=== PATIENT | male | born 1950 | race Hispanic/Latino ===

== ENCOUNTER 2020-03-25 05:15 | Inpatient (IN) | payer MEDICARE, OTHER ==
[2020-03-20 13:25] LABS: BASOPHILS % 0.3 % (0.0-1.0); EOSINOPHILS # (AUTO) 0.4 (0.0-0.4); EOSINOPHILS % 3.7 % (0.0-6.0); HEMATOCRIT 46.6 % (38.2-49.6); HEMOGLOBIN 15.1 g/dL (14.0-18.0); LYMPHOCYTES # (AUTO) 4.1 (1.0-3.2); LYMPHOCYTES % 41.9 % (18.0-39.1); MEAN CORPUSCULAR HEMOGLOBIN 31.9 pg (28-32); MEAN CORPUSCULAR HGB CONC 32.4 g/dL (31-35); MEAN CORPUSCULAR VOLUME 98.3 fL (81-99); MONOCYTES # (AUTO) 0.6 (0.2-0.8); MONOCYTES % 6.2 % (4.4-11.3); NEUTROPHILS # (AUTO) 4.7 (2.1-6.9); NEUTROPHILS % 47.6 % (38.7-80.0); PLATELET COUNT 228 x10e3/uL (140-360); RED BLOOD COUNT 4.74 x10e6/uL (4.3-5.7); RED CELL DISTRIBUTION WIDTH 13.6 % (11.7-14.4)
--- NOTE | 2020-03-20 13:33 | Diagnostic Imaging Report ---
Exam: PA and lateral chest radiograph Clinical history: Preoperative clearance Findings: There is no evidence of pulmonary consolidation, pleural effusion, or pneumothorax. The cardiac size is within normal limits. The descending aorta is tortuous. The regional osseous structures are unremarkable. Signed by: Dr. Ahmet Luu MD on 03/20/2020 1:30 PM
[~2020-03-25] VITALS: Ht 185.4 cm; Wt 112.5 kg
[~2020-03-25 05:15] MED LIST: DETROL LA4 MG PO; NAPROXEN250 MG PO; TIZANIDINE HCL4 MG PO; ULTRAM50 MG PO; VESICARE5 MG PO
[2020-03-25] MEDS ORDERED: CEFTRIAXONE SOD 1 GM/NS 50 ML 50 ML IV ONE (05:35)
[2020-03-25] MEDS ORDERED: GENTAMICIN 80MG/NS 100 ML 200 ML IV ONE (05:35)
[2020-03-25] MEDS ORDERED: IOPAMIDOL 300MG/ML 50ML INFUS..BTL IV ONE (06:12)
[2020-03-25] MEDS ORDERED: B&O 60MG R/S 60 MG SUPP PR ONE (06:12)
[2020-03-25] MEDS ORDERED: FENTANYL CITRATE/PF 100MCG/2 ML INJ ONE (08:21)
[2020-03-25] MEDS ORDERED: ONDANSETRON HCL INJ 2MG/ML 2ML 2 MG/ML VIAL IV PRN (08:30)
[2020-03-25] MEDS ORDERED: ACETAMINOPHEN/CODEINE 300MG - 30MG TAB PO PRN (08:30)
[2020-03-25] MEDS ORDERED: B&O 60MG R/S 60 MG SUPP PR PRN (08:30)
[2020-03-25] MEDS ORDERED: DIPHENHYDRAMINE HCL 25 MG CAP PO PRN (08:30)
[2020-03-25] MEDS ORDERED: HYDROMORPHONE 1MG/1ML INJ ONE (08:53)
[2020-03-25] MEDS: DOCUSATE SODIUM 100 MG CAP PO SCH ×2 (09:00→18:21)
[2020-03-25] MEDS: PHENAZOPYRIDINE HCL 100 MG TAB PO SCH ×3 (09:00→18:22)
--- OUTSIDE RECORDS SUMMARY | 2020-03-25 09:12 | XMS REPORT ---
Author Author [facility] t Organization [facility] Address [address] [place] [address] Dr. Vega [address] [place] [phone] Phone Unavailable Care Team Providers Care Sliding Joint Maker Name Role Phone JEANA LALITHA Ward Unavailable Problems This patient has no known problems. Allergies, Adverse Reactions, Alerts This patient has no known allergies or adverse reactions. Medications This patient has no known medications. Procedures This patient has no known procedures. Results Test Description Test Time Test Comments Results Result Comments Source CHEST 2 VIEWS 2020-03-20 13:29:00 [place] [address] Patient Name: CHARLEEN ORR JR MR #: [id number] : 1950 Age/Sex: 69/M Req #: [id number] Adm Physician: Ordered by: SHAWNA MORIN MD Report #: [id number] Location: OR Room/Bed: Procedure: [id number] DX/CHEST 2 VIEWS Exam Date: Exam Time: REPORT STATUS: Signed Exam: PA and lateral chest radiograph Clinical history: Preoperative clearance Findings: There is no evidence of pulmonary consolidation, pleural effusion, or pneumothorax. The cardiac size is within normal limits. The descending aorta is tortuous. The regional osseous st ructures are unremarkable. Signed by: Dr. Ahmet Luu MD on 03/20/2020 1:30 PM Dictated By: BENOIT LUU MD 29 Transcribed By: ANGLE on 03/20/201329 COPY TO: SHAWNA MORIN MD
[2020-03-25 09:14] LABS: BASOPHILS % 0.4 % (0.0-1.0); EOSINOPHILS # (AUTO) 0.3 (0.0-0.4); EOSINOPHILS % 3.8 % (0.0-6.0); HEMATOCRIT 43.6 % (38.2-49.6); LYMPHOCYTES # (AUTO) 2.5 (1.0-3.2); MEAN CORPUSCULAR HEMOGLOBIN 32.1 pg (28-32); MEAN CORPUSCULAR HGB CONC 32.1 g/dL (31-35); MONOCYTES # (AUTO) 0.3 (0.2-0.8); MONOCYTES % 3.2 % (4.4-11.3); NEUTROPHILS # (AUTO) 5.3 (2.1-6.9); PLATELET COUNT 192 x10e3/uL (140-360); RED BLOOD COUNT 4.36 x10e6/uL (4.3-5.7); RED CELL DISTRIBUTION WIDTH 13.5 % (11.7-14.4)
[2020-03-25 10:40] LABS: ANION GAP 13.8 mmol/L (8-16); BLOOD UREA NITROGEN 10 mg/dL (7-26); BUN/CREATININE RATIO 12 (6-25); CALCIUM 8.5 mg/dL (8.4-10.2); CARBON DIOXIDE 22 mmol/L (22-29); CHLORIDE 104 mmol/L (98-107); CREATININE, SERUM 0.86 mg/dL (0.72-1.25); EST GLOMERULAR FILTRATION RATE > 60 ML/MIN (60-); GLUCOSE 118 mg/dL (74-118); POTASSIUM 3.8 mmol/L (3.5-5.1); SODIUM 136 mmol/L (136-145)
[2020-03-25 10:45] VITALS: BP 157/97
--- NOTE | 2020-03-25 10:45 | NUR ---
RECEIVED PT FROM PACU VIA STRETCHER; PT ABLE TO TRANSFER SELF TO BED. AT BEDSIDE
[2020-03-25 11:56] VITALS: BP 157/92
[2020-03-25] MEDS ORDERED: ACETAMINOPHEN 1000 MG/100 ML IV PRN (12:00)
[2020-03-25] MEDS: D5.45%NS/KCL 20MEQ 1,000 ML IV SCH ×2 (12:18→22:30)
--- NOTE | 2020-03-25 15:00 | NUR ---
PT TOLERATING CBI AND NO COMPLAINTS VOICED.
[2020-03-25 15:45] VITALS: BP 113/66
--- NOTE | 2020-03-25 18:39 | NUR ---
NO CHANGES AT THIS TIME IN PT STATUS
--- NOTE | 2020-03-25 19:20 | NUR ---
RECEIVED REPORT FROM PREVIOUS NURSE. CALL LIGHT WITHIN REACH. PATIENT IN BED. ROUNDING DONE
[2020-03-25] MEDS ORDERED: ETOMIDATE 2 MG/ML 10 ML INJ IV ONE (19:45)
[2020-03-25] MEDS ORDERED: ACETAMINOPHEN 1000 MG/100 ML IV ONE (19:45)
[2020-03-25] MEDS ORDERED: LIDOCAINE HCL 2% LOCAL INJ 5 ML SDV VIAL INJ ONE (19:45)
[2020-03-25] MEDS ORDERED: ONDANSETRON HCL INJ 2MG/ML 2ML 2 MG/ML VIAL ONE (19:45)
[2020-03-25] MEDS ORDERED: SEVOFLURANE INHAL SOLN 250 ML PEN BTL ONE (19:45)
[2020-03-25] MEDS ORDERED: DEXAMETHASONE SOD PHOS INJ 4 MG/ML VIAL ONE (19:45)
[2020-03-25 20:00] VITALS: BP 124/73
[2020-03-25 20:48] VITALS: BP 124/73
[2020-03-26] VITALS (7 sets, daily range): BP systolic 123–145; BP diastolic 75–88
--- NOTE | 2020-03-26 00:30 | NUR ---
CATHETER CARE PERFORMED
--- NOTE | 2020-03-26 02:18 | Operative Report ---
DATE OF PROCEDURE: 03/25/2020 SURGEON: Joel Rivera MD PREOPERATIVE DIAGNOSES: 1. Obstructive benign prostatic hyperplasia. 2. Incomplete bladder emptying. 3. Urinary tract infections. POSTOPERATIVE DIAGNOSES: 1. Obstructive benign prostatic hyperplasia. 2. Incomplete bladder emptying. 3. Urinary tract infections. 4. Urethral stricture disease. OPERATIONS PERFORMED: 1. Cystourethroscopy with calibration and dilation of urethral stricture disease (separate procedure performed for the stricture). 2. Cystourethroscopy with bilateral ureteral catheterization and retrograde ureteropyelography (separate procedure performed for urine tract infections and incomplete bladder emptying). 3. Interpretation of retrograde ureteropyelography, no radiologist present. 4. Supervision of fluoroscopy, no radiologist present. 5. Cystourethroscopy with transurethral resection of the prostate using the plasma with electrode. ANESTHESIA: General. COMPLICATIONS: None. CLINICAL SUMMARY: Rosendo Alejandra Junior is a 69-year-old man with the above preoperative diagnosis. He is brought for the above procedures. He is aware of the risks of bleeding, infection, injury to adjacent structures, need for additional procedures, and elected to proceed. OPERATIVE PROCEDURE IN DETAIL: Informed consent was verified. Rosendo Alejandra Junior was properly identified and taken to the operating table in supine position. Anesthesia was uneventfully begun. The patient was then carefully gently repositioned in dorsal lithotomy position with all pressure points well padded. His genitalia were prepared and draped in usual sterile fashion. The cystoscope sheath with a visual obturator in place was atraumatically inserted into the patient's urethra. It was guided down into the normal urethral meatus, but there was some narrowing of the fossa navicularis, which calibrated at approximately 18-Emirati in size. We gently dilated the process with the cystoscope sheath, which was 21-Emirati in size and proceeded down the relatively unremarkable urethra until we reached the bulbar urethral stricture. This stricture appeared fairly dense, but I also palpated approximately 18-Emirati in size. We went through normal sphincteric region through the prostate bed, which was significant for having had a previous photoselective vaporization of prostate, which was significant for having previous transurethral resection procedure. The patient did have residual visually obstructing tissue especially at the apical region. Panendoscopy of the bladder revealed some patches of erythema throughout the bladder and upon filling the bladder for cystoscopy, it appears the patient develops glomerulations. He may have a variant of interstitial cystitis. No suspicious lesions were identified. An 8-Emirati catheter was used to cannulate each ureter and retrograde ureteropyelograms were performed. Interpretation of retrograde ureteropyelography contrast was instilled in retrograde fashion bilaterally. There were no tumors no stones, and no diverticula. Unobstructed drainage was observed bilaterally fluoroscopically. We finished the urethral dilation procedure by utilizing nAa sounds and dilating the patient's urethra to 30-Emirati in size. This allowed us to easily place a 28-Emirati. The resectoscope sheath with an obturator in place. We then proceeded performing transurethral resection of the prostate from the bladder neck to maneuver past the verumontanum and down the surgical capsule. A pinpoint electrocautery was utilized to achieve hemostasis. All chips were evacuated and this was verified endoscopically. The resectoscope was then withdrawn. A continuous irrigation Ortega catheter was placed. It was irrigated to and fro ensure it worked properly. It was placed in continuous bladder irrigation with clear efflux. Belladonna and opium suppository were placed revealing a large at least 40 g prostate, smooth, nonfluctuant without any nodules and the patient was uneventfully reversed from anesthesia and taken to recovery room in stable condition. There were no complications to the procedure. He tolerated the procedure well. We will proceed with routine postoperative care and of course ongoing urological followup. Joel Rivera MD [place]/MODL /[id number]
[2020-03-26 05:38] LABS: BASOPHILS % 0.2 % (0.0-1.0); EOSINOPHILS # (AUTO) 0.2 (0.0-0.4); EOSINOPHILS % 1.5 % (0.0-6.0); HEMATOCRIT 43.6 % (38.2-49.6); HEMOGLOBIN 14.3 g/dL (14.0-18.0); LYMPHOCYTES # (AUTO) 3.6 (1.0-3.2); LYMPHOCYTES % 27.3 % (18.0-39.1); MEAN CORPUSCULAR HEMOGLOBIN 32.9 pg (28-32); MEAN CORPUSCULAR HGB CONC 32.8 g/dL (31-35); MEAN CORPUSCULAR VOLUME 100.2 fL (81-99); MONOCYTES # (AUTO) 0.7 (0.2-0.8); MONOCYTES % 5.5 % (4.4-11.3); NEUTROPHILS # (AUTO) 8.6 (2.1-6.9); PLATELET COUNT 211 x10e3/uL (140-360); RED BLOOD COUNT 4.35 x10e6/uL (4.3-5.7); RED CELL DISTRIBUTION WIDTH 13.4 % (11.7-14.4)
[2020-03-26] MEDS: CEFTRIAXONE SOD 1 GM/NS 50 ML 50 ML IV SCH (05:50)
[2020-03-26 05:59] LABS: ANION GAP 12.8 mmol/L (8-16); BLOOD UREA NITROGEN 7 mg/dL (7-26); BUN/CREATININE RATIO 9 (6-25); CALCIUM 8.9 mg/dL (8.4-10.2); CARBON DIOXIDE 23 mmol/L (22-29); CHLORIDE 105 mmol/L (98-107); CREATININE, SERUM 0.82 mg/dL (0.72-1.25); EST GLOMERULAR FILTRATION RATE > 60 ML/MIN (60-); GLUCOSE 144 mg/dL (74-118); POTASSIUM 3.8 mmol/L (3.5-5.1); SODIUM 137 mmol/L (136-145)
--- NOTE | 2020-03-26 06:24 | History and Physical ---
REASON FOR ADMISSION: Status post TURP for BPH. HISTORY OF PRESENT ILLNESS: This is a 69-year-old gentleman with severe BPH, failed medical therapy, who is now status post TURP. Doing well postoperatively. REVIEW OF SYSTEMS: He has some mild hematuria, but otherwise is doing very well. PAST MEDICAL HISTORY: Hypertension, but diet-controlled; osteoarthritis and BPH. MEDICATIONS: See MAR. ALLERGIES: SEE MAR. SOCIAL HISTORY: Lives at home with his . Nonsmoker and nondrinker. FAMILY HISTORY: Hypertension. PHYSICAL EXAMINATION: VITAL SIGNS: Blood pressure 151/74, pulse 74, temperature 98.6, saturations 99% on room air. GENERAL: No apparent distress, lying in bed. NECK: Supple. CARDIOVASCULAR: Regular rate and rhythm. LUNGS: Clear to auscultation bilaterally. ABDOMEN: Good bowel sounds. Soft, nontender. EXTREMITIES: No clubbing or cyanosis. NEUROLOGIC: Nonfocal. Ortega is in place with some mild hematuria. ASSESSMENT/PLAN: 1. Status post transurethral resection of prostate. Continue with postoperative care. 2. Hematuria. Continue with Ortega flushings, but there is no evidence of clots at this time. 3. Hypertension. We will continue to monitor. 4. Benign prostatic hypertrophy. We will continue with current care per Dr. Rivera. 5. Obesity. The patient knows he needs to diet regular. Please see hospital chart for full details. MD HOWARD Johnston/TERESO /[id number]
[2020-03-26] MEDS: D5.45%NS/KCL 20MEQ 1,000 ML IV SCH ×2 (07:17→18:11)
--- NOTE | 2020-03-26 07:18 | NUR ---
GAVE REPORT TO ONCOMING NURSE. CALL LIGHT WITHIN REACH. PATIENT IN BED. ROUNDING DONE EVERY HOUR THROUGHOUT THE SHIFT. Addendum: 03/26/20 at 0719 by Keyana Somers RN SAINI DRAINING CLEAR YELLOW URINE
--- NOTE | 2020-03-26 08:10 | NUR ---
RECEIVED PT EARLIER NO COMPLAINTS VOICED. DR HILLS TO SEE PT. NEW ORDERS RECEIVED.
[2020-03-26] MEDS: DOCUSATE SODIUM 100 MG CAP PO SCH ×2 (08:31→16:52)
[2020-03-26] MEDS: PHENAZOPYRIDINE HCL 100 MG TAB PO SCH ×3 (08:32→16:52)
--- NOTE | 2020-03-26 10:01 | NUR ---
PT UP IN A CHAIR. AT BEDSIDE.
[2020-03-26] MEDS ORDERED: ONDANSETRON HCL 4 MG ORAL DISINTEGRATING TAB PO PRN (17:15)
--- NOTE | 2020-03-26 19:30 | NUR ---
received report from day nurse. patient is resting comfortably in the bed. bed is in lowest position and call light is within reach. will continue to monitor patient.
[2020-03-27] VITALS: BP 126/85
[2020-03-27 00:09] VITALS: BP 123/79
[2020-03-27] MEDS: D5.45%NS/KCL 20MEQ 1,000 ML IV SCH (00:30)
[2020-03-27 04:00] VITALS: BP 128/87
[2020-03-27] MEDS: CEFTRIAXONE SOD 1 GM/NS 50 ML 50 ML IV SCH (04:54)
[2020-03-27 05:28] LABS: BASOPHILS % 0.4 % (0.0-1.0); EOSINOPHILS # (AUTO) 0.6 (0.0-0.4); EOSINOPHILS % 5.1 % (0.0-6.0); HEMATOCRIT 45.4 % (38.2-49.6); HEMOGLOBIN 14.7 g/dL (14.0-18.0); LYMPHOCYTES # (AUTO) 3.7 (1.0-3.2); LYMPHOCYTES % 33.1 % (18.0-39.1); MEAN CORPUSCULAR HEMOGLOBIN 32.5 pg (28-32); MEAN CORPUSCULAR HGB CONC 32.4 g/dL (31-35); MEAN CORPUSCULAR VOLUME 100.4 fL (81-99); MONOCYTES # (AUTO) 0.8 (0.2-0.8); MONOCYTES % 6.9 % (4.4-11.3); NEUTROPHILS % 54.1 % (38.7-80.0); PLATELET COUNT 222 x10e3/uL (140-360); RED BLOOD COUNT 4.52 x10e6/uL (4.3-5.7); RED CELL DISTRIBUTION WIDTH 13.9 % (11.7-14.4)
[2020-03-27 05:46] LABS: ANION GAP 12.1 mmol/L (8-16); BLOOD UREA NITROGEN 8 mg/dL (7-26); BUN/CREATININE RATIO 8 (6-25); CALCIUM 8.9 mg/dL (8.4-10.2); CARBON DIOXIDE 26 mmol/L (22-29); CHLORIDE 102 mmol/L (98-107); CREATININE, SERUM 0.96 mg/dL (0.72-1.25); EST GLOMERULAR FILTRATION RATE > 60 ML/MIN (60-); GLUCOSE 112 mg/dL (74-118); POTASSIUM 4.1 mmol/L (3.5-5.1); SODIUM 136 mmol/L (136-145)
--- NOTE | 2020-03-27 06:42 | NUR ---
patient is resting in the bed, bed is in lowest position and call light is within reach.
--- NOTE | 2020-03-27 07:08 | NUR ---
AAOX3. ACYANOTIC. RESTING IN BED. NO DISTRESS NOTED. CALL LIGHT IN REACH. SIDE RAILS UP X2. BED LOW.
[2020-03-27 08:00] VITALS: BP 118/80
[2020-03-27] MEDS: PHENAZOPYRIDINE HCL 100 MG TAB PO SCH ×2 (08:16→12:38)
[2020-03-27] MEDS: DOCUSATE SODIUM 100 MG CAP PO SCH (08:16)
[2020-03-27 12:00] VITALS: BP 127/76
[2020-03-27] MEDS ORDERED: CEFUROXIME250 MG PO (15:02)
[2020-03-27] MEDS ORDERED: TYLENOL WITH C1 EACH PO (15:02)
--- NOTE | 2020-03-29 08:10 | Discharge Summary ---
DISCHARGE DIAGNOSES: 1. Prostatism, status post therapy. 2. Benign prostatic hypertrophy. HISTORY OF PRESENT ILLNESS AND HOSPITAL COURSE: See hospital chart for full details. The patient is a gentleman, who suffers from significant BPH. He was brought in for elective TURP, which he had performed by Dr. Rivera without any complications. He did very well postoperatively with clear urine by the time of discharge and he was discharged home with a Ortega and will follow with Dr. Rivera in 1 to 2 weeks as well as with me and to call if anything changes. Please see hospital chart for full details. MD HOWARD Johnston/TERESO /[id number]
== END 2020-03-27 15:36 | disposition home or self-care (01) | DRG 713 ==
LOC: OR 05:15 → PACU V 08:31 → MED/SURG 10:45
PROVIDERS: ADMIT Internal Medicine; ATTEND Internal Medicine
PROC: 0T7D8ZZ Dilation of Urethra, Via Natural or Artificial Opening Endoscopic (ICD-10-PCS; 2020-03-25)
PROC: BT141ZZ Fluoroscopy of Kidneys, Ureters and Bladder using Low Osmolar Contrast (ICD-10-PCS; 2020-03-25)
PROC: 0V508ZZ Destruction of Prostate, Via Natural or Artificial Opening Endoscopic (ICD-10-PCS; principal; 2020-03-25 07:00)
DX: N40.1 Benign prostatic hyperplasia with lower urinary tract symptoms (principal); N39.0 Urinary tract infection, site not specified; R31.9 Hematuria, unspecified; I10 Essential (primary) hypertension; M19.90 Unspecified osteoarthritis, unspecified site; E66.9 Obesity, unspecified; Z68.32 Body mass index [BMI] 32.0-32.9, adult; Z87.891 Personal history of nicotine dependence; R39.14 Feeling of incomplete bladder emptying; N35.912 Unspecified bulbous urethral stricture, male
CPT/HCPCS: 36415; 71046; 74420; 80048; 83735; 85025; 87635; 88305; 93005; C1758; J0696; J1100; J1170; J1580; J2001; J2405; J3010